=== PATIENT | female | born 1980 | race Caucasian/White ===

== ENCOUNTER 2017-10-05 16:18 | Emergency (ER) | payer MEDICARE ==
[~2017-10-05] VITALS: Ht 165.1 cm; Wt 124.7 kg
[~2017-10-05 16:18] MED LIST: Amoxicillin500 MG PO; Augmentin 875-1 EACH PO; BENTYL20 MG PO; Cipro500 MG PO; Ciprodex Otic7.5 ML RIGHTEAR; Cleocin HCl300 MG PO; ERYT.5TO RIGHTEYE; EXEN10PI; FLUSAL2505 PO; Flagyl500 MG PO; Flonase 0.05% N16 GM; GLIM2 PO; HYDACE5325 PO; IBUP600 PO; IBUP800 PO; LIRA0.6P; LISI5 PO; LITH300C PO; Lantus100 UNIT/1 SQ; METF500 PO; METPRE4DP PO; NAPR220 PO; NAPR500 PO; Norco 10-325 T1 EACH PO; OMEP20ER; PENVK250 PO; PENVK500 PO; QUET200 PO; RXHYD5325 PO; Robaxin-750750 MG PO; SULI150 PO; TOPI25 PO; TRAM50 PO; Tylenol W/Code120 ML PO; Ultram50 MG PO; Veetids 500500 MG PO
[2017-10-05] MEDS ORDERED: Cleocin HCl300 MG PO (16:44)
== END 2017-10-05 16:50 | disposition home or self-care (01) ==
LOC: ER 16:18
DX: K08.89 Other specified disorders of teeth and supporting structures (principal); Z88.8 Allergy status to other drugs, medicaments and biological substances; Z79.899 Other long term (current) drug therapy; Z79.891 Long term (current) use of opiate analgesic; Z79.2 Long term (current) use of antibiotics; J45.909 Unspecified asthma, uncomplicated; E11.9 Type 2 diabetes mellitus without complications; F31.9 Bipolar disorder, unspecified; F17.200 Nicotine dependence, unspecified, uncomplicated; Z90.49 Acquired absence of other specified parts of digestive tract
CPT/HCPCS: 99282

== ENCOUNTER 2017-10-27 16:24 | Emergency (ER) | payer MEDICARE ==
[~2017-10-27] VITALS: Ht 165.1 cm; Wt 120.2 kg
[2017-10-27] MEDS ORDERED: Cleocin HCl150 MG PO (17:32)
== END 2017-10-27 17:37 | disposition home or self-care (01) ==
LOC: ER 16:24
DX: H92.01 Otalgia, right ear (principal); K08.89 Other specified disorders of teeth and supporting structures; J45.909 Unspecified asthma, uncomplicated; E11.9 Type 2 diabetes mellitus without complications; F31.9 Bipolar disorder, unspecified; F17.210 Nicotine dependence, cigarettes, uncomplicated; Z88.8 Allergy status to other drugs, medicaments and biological substances; Z88.6 Allergy status to analgesic agent; Z79.899 Other long term (current) drug therapy; Z79.84 Long term (current) use of oral hypoglycemic drugs; Z79.2 Long term (current) use of antibiotics; Z90.49 Acquired absence of other specified parts of digestive tract
CPT/HCPCS: 99282

== ENCOUNTER 2018-05-04 11:13 | Emergency (ER) | payer MEDICARE ==
[~2018-05-04] VITALS: Ht 165.1 cm; Wt 74.8 kg
[~2018-05-04 11:13] MED LIST changes: +Cleocin HCl150 MG PO
[2018-05-04] MEDS ORDERED: Veetids 500500 MG PO (11:25)
== END 2018-05-04 11:35 | disposition home or self-care (01) ==
LOC: ER 11:13
DX: J02.9 Acute pharyngitis, unspecified (principal); Z88.8 Allergy status to other drugs, medicaments and biological substances; Z79.899 Other long term (current) drug therapy; Z79.891 Long term (current) use of opiate analgesic; E11.9 Type 2 diabetes mellitus without complications; J45.909 Unspecified asthma, uncomplicated; F31.9 Bipolar disorder, unspecified; F17.210 Nicotine dependence, cigarettes, uncomplicated
CPT/HCPCS: 99282